=== PATIENT | female | born 2005 | race Caucasian/White ===

== ENCOUNTER 2023-05-30 17:54 | Emergency (ER) | payer BC, MEDICAID, SELFPAY ==
[2023-05-30 17:55] VITALS: BP 132/92; PULSE 56; RESP 16; TEMP 36.4; O2SAT 98; BMI 22.8
--- NOTE | 2023-05-30 18:40 | EKG12_ITS ---
Test Reason : CP Blood Pressure : / mmHG Vent. Rate : 052 BPM Atrial Rate : 052 BPM P-R Int : 142 ms QRS Dur : 076 ms QT Int : 428 ms P-R-T Axes : 058 041 066 degrees QTc Int : 398 ms Sinus bradycardia Otherwise normal ECG Confirmed by Fritz Watson ([id number]), index editor ELAINA LOUIS ([id number]) on 06/01/2023 9:31:43 AM Referred By: Confirmed By:Fritz Watson
--- NOTE | 2023-05-30 18:41 | ED.VIS.CHEST ---
HPI History of Present Illness Chief Complaint: Chest Pain Informant: patient Narrative Narrative: Presents substernal chest pain since this morning. Reports having shortness of breath for the past 6 weeks. Initially started Zoloft by her psychiatrist had neck swelling and dyspnea it was stopped a month ago started on esoCitalopram states continued shortness of breath. Cough mild production for the past week. No fevers states headache. COVID vaccinated states had 3 COVID infections the past. Has a Nexplanon. No tobacco history. No family or send heart . Denies hypertension, diabetes, hyperlipidemia. No recent travel or surgeries. No history of PE or DVT. CVD Risk Factors: Negative for Hypertension, Diabetes, Hypercholesterolemia, Family History 1' </=55 or Smoking PE Risk Factors: Negative for Recent Travel/Surgery, Recent Immobilization or Prior DVT or PE [facility] Medical History (Updated 05/30/23 @ 20:[address] Cirilo Underwood DO) Anxiety Depression Social History Smoking Status: Never smoker ROS ROS ED Constitutional Constitutional ED: Denies chills, fever(s) or sweats Eyes Eyes: Denies change in vision ENT ENT ED: Denies dysphagia or sore throat Cardiovascular Cardiovascular: Reports chest pain; Denies leg edema, palpitations or racing heartbeat Respiratory/Chest Respiratory/Chest: Reports cough and dyspnea; Denies dyspnea on exertion Gastrointestinal Gastrointestinal: Denies abdominal pain, diarrhea, nausea or vomiting Genitourinary Genitourinary ED: Denies dysuria, hematuria or urinary frequency Musculoskeletal Musculoskeletal: Denies back pain, extremity pain or neck pain Integumentary Denies rash or wounds Neurologic Neurologic: Reports headache(s); Denies paresthesias or weakness EXAM Physical Exam Const Vital Signs: 05/30/23 17:55 05/30/23 18:40 05/30/23 18:53 Temperature 97.6 F L Temperature Source Temporal Pulse Rate 56 L 54 L Respiratory Rate 16 16 Blood Pressure 132/92 H 136/99 H Blood Pressure Mean 105 111 Pulse Ox 98 99 Oxygen Delivery Method Room Air Room Air Room Air 05/30/23 20:00 05/30/23 20:26 Temperature 97.6 F L Temperature Source Pulse Rate 49 L 53 L Respiratory Rate 18 16 Blood Pressure 115/72 108/69 Blood Pressure Mean 86 82 Pulse Ox 97 98 Oxygen Delivery Method Room Air Positive well nourished and well developed General Appearance ED: well developed and NAD HEENT Reports moist mucous membranes normocephalic and atraumatic Eyes PERRL, EOMs intact bilaterally and conjunctivae normal General Eye ED: Yes normal appearance of both eyes Neck no lymphadenopathy and supple General: Negative for tenderness Chest Wall Chest: Negative for tenderness Resp normal respiratory effort and normal air movement Effort and Inspection: symmetric chest movement; Negative for respiratory distress Cardio regular rhythm and no murmurs Rate: bradycardia Peripheral Pulses: pulses 2+ throughout GI normal to inspection, nondistended, normoactive bowel sounds and non-tender Palpation: Negative for guarding or rebound tenderness present Back/Spine no CVA tenderness and no thoracic nor lumbar tenderness Extremity normal to inspection General Extremety ED: Negative for edema or tenderness General Extremity: Negative for edema Neuro oriented x3 and no sensory deficits noted Sensorium / Orientation: awake and alert Skin no rashes or lesions noted and no wounds MDM MDM MDM Narrative Medical decision making narrative: Interventions / MDM: Differential diagnosis: Viral syndrome, atypical chest pain. Diagnosis considered but do not suspect: Pneumothorax, normal lung sounds bilaterally. Pulmonary embolism however negative D-dimer. ACS however EKG with no ischemic changes and negative troponin. Pneumonia however x-ray negative. My EKG interpretation: Sinus rate of 52, no ST changes, T wave inversions V1 V2, no old for comparison. Imaging independently reviewed and interpreted by myself: 2 view chest x-ray: No acute process External documents reviewed: N/A Test considered but not ordered:N/A ED course: Chest pain today however prolonged dyspnea. EKG bradycardia with T wave inversions anterior leads. She is on control. Will check cardiac labs will check a D-dimer. COVID and influenza with her cough symptoms. Cardiac workup negative D-dimer negative chest x-ray ordered and negative. COVID and influenza returned negative. Reassured on findings. For dyspnea worsening since on her anxiety medications. She discuss her meds with her psychiatrist to change as indicated. All questions were answered. Return precautions. Re-evaluation: stable Disposition discussed with patient/family/significant other: Patient Case discussed with consulting clinician: N/A This note was generated with [employer] dictation software. It may contain incorrect words, spelling, and punctuation that were not noted in checking the note before signing. Lab Data Attestation: I reviewed the patient's lab results. Labs: Laboratory Results - last 24 hr 05/30/23 18:50 WBC 7.9 RBC 4.01 L Hgb 12.3 Hct 35.8 L MCV 89.3 MCH 30.7 MCHC 34.4 RDW Std Deviation 37.1 RDW Coeff of Toña 11.5 L Plt Count 310 MPV 9.5 Immature Gran % (Auto) 0.100 Neut % (Auto) 56.3 Lymph % (Auto) 30.8 [place] % (Auto) 10.8 H Eos % (Auto) 1.6 Baso % (Auto) 0.4 Absolute Neuts (auto) 4.5 Absolute Lymphs (auto) 2.43 Nucleated RBC % 0 D-Dimer Quant (PE/DVT) 0.37 Sodium 139 Potassium 3.4 L Chloride 111 H Carbon Dioxide 24.0 Anion Gap 4 L BUN 13 Creatinine 0.66 Estim Creat Clear Calc 128.35 Est GFR (MDRD) Af Amer 148 Est GFR (MDRD) Non-Af 122 BUN/Creatinine Ratio 19.8 Glucose 89 Calcium 10.1 Troponin I High Sens 3 Serum , Qual NEGATIVE Radiography Diagnostic Testing: Clinical Impression(s) from Imaging Studies Chest X-Ray 05/30/23 19:25 IMPRESSION: Normal x-ray examination of the chest. Electronically Signed: Vladimir Wagoner MD at 20:11 EST Reading Location ID and State: [address] [place] [address] Tel , Service support , Discharge Plan Triage Chief Complaint: Chest Pain ED Provider: Cirilo Underwood Dx/Rx/DC Orders Clinical Impression: Acute viral syndrome, Chest pain Instructions: ED Chest Pain, Uncertain Cause, ED Viral Syndrome (Adult) Primary Care Provider: Care Physician,No Primary Referrals: NOT,DEFINED [Non-Staff] - Activity Restrictions/Additional Instructions: Cardiac workup negative. Chest x-ray negative. D-dimer negative. COVID, influenza, RSV negative. Discussed with your psychiatrist your medications as you report it is causing shortness of breath since starting it. You may need this medication change. Disposition Disposition: Home, Self Care Discharge Date/Time: 05/30/23 20:30
[2023-05-30 18:53] VITALS: BP 136/99; PULSE 54; RESP 16; O2SAT 99
[2023-05-30 19:02] LABS: Absolute Lymphocyte Count 2.43 X10^3/uL (0.83-4.51); Absolute Neutrophil Count 4.5 X10^3/uL (2.0-7.7); Basophil# 0.03 X10^3/uL; Basophil% 0.4 % (0-1); Eosinophil# 0.13 X10^3/uL; Eosinophils% 1.6 % (0-5); Hematocrit 35.8 % (37-47); Hemoglobin 12.3 g/dL (12.0-15.0); Lymphocyte # 2.43 X10^3/ul (0.83-4.51); Lymphocyte % 30.8 % (19-41); Mean Corp Hgb Conc 34.4 g/dL (32-36); Mean Corpuscular Hgb 30.7 pg (27.0-32.0); Mean Corpuscular Volume 89.3 fL (81-99); Mean Platelet Vol. 9.5 fl (6.2-12.0); Monocyte# 0.85 X10^3/uL; Monocyte% 10.8 % (0-10); NRBC Flagged by Analyzer 0 % (0-5); Neutrophil # 4.45 X10^3/uL (2.7-7.7); Neutrophil % 56.3 % (47-70); Platelet Count 310 K/mm3 (150-450); RBC Distribution Width CV 11.5 % (11.6-14.6); RBC Distribution Width SD 37.1 fl (35.1-43.9); Red Blood Count 4.01 M/mm3 (4.2-5.4); White Blood Count 7.9 K/mm3 (4.4-11.0)
[2023-05-30 19:14] LABS: D-Dimer Quantitative (DVT/PE) 0.37 FEU/ug/m (0.27-0.49)
[2023-05-30 19:21] LABS: Internal QC Validated? YES +Cl - CLEAR BKGD; Pregnancy, Serum, hCG Quali. NEGATIVE Negative
[2023-05-30 19:24] LABS: Anion Gap 4 (5-15); BUN 13 mg/dL (7-18); BUN/Creat Ratio 19.8 RATIO (10-20); Calcium,Total 10.1 mg/dL (8.5-10.1); Chloride 111 mmol/L (98-107); Creatinine, Serum 0.66 mg/dL (0.55-1.02); EST Glomerular Filtration Rate 122 mL/min (>60); Est Glom Filt Rate - Afr Amer 148 mL/min (>60); Estimated Creatinine Clearance 128.35 ml/min; Glucose 89 mg/dL (74-106); Potassium 3.4 mmol/L (3.5-5.1); Sodium Level 139 mmol/L (136-145); Troponin-I HS (w/2H Reflex) 3 pg/mL (3.0-54.0)
--- NOTE | 2023-05-30 19:25 | RAD_ITS ---
STUDY: X-RAY CHEST REASON FOR EXAM: Female, 17 years old. cough TECHNIQUE: PA and lateral COMPARISON: None. FINDINGS: The lungs are clear and expanded. There is no demonstrated pleural abnormality. Normal size heart. Normal mediastinum and urmila. Normal visualized pulmonary arteries. Normal visualized aortic arch and descending thoracic aorta. Normal visualized thoracic spine. Normal visualized ribs, clavicles, and shoulders. There is no demonstrated abnormality of the visualized soft tissue structures of the upper abdomen. RAD/Chest PA and Lateral IMPRESSION: Normal x-ray examination of the chest. Electronically Signed: Vladimir Wagoner MD at 20:11 [facility]UST ,
[2023-05-30 20:00] VITALS: BP 115/72; PULSE 49; RESP 18; O2SAT 97
[2023-05-30 20:26] VITALS: BP 108/69; PULSE 53; RESP 16; TEMP 36.4; O2SAT 98
[2023-05-30 21:00] LABS: Reflex Troponin-HS? (from REC) Y
== END 2023-05-30 20:30 | disposition home or self-care (01) ==
PROVIDERS: Emergency Provider Emergency Medicine; Visit Provider Emergency Medicine
DX: R07.9 Chest pain, unspecified (principal); B34.9 Viral infection, unspecified; F41.9 Anxiety disorder, unspecified; Z79.899 Other long term (current) drug therapy; R06.02 Shortness of breath
CPT/HCPCS: 71046; 80048; 84484; 84703; 85025; 85379; 87631; 93005; 99284; J7040; A4216